=== PATIENT | male | born 1965 | race Caucasian/White ===

== ENCOUNTER 2018-02-17 08:40 | Emergency (ER) | payer MEDICARE, MEDICAID ==
[2018-02-17] MEDS ORDERED: CEFTRIAXONE SODIUM 1 GM in 0.9 % SODIUM CHLORIDE 100ML 100 ML IVPB ONE (09:01)
--- NOTE | 2018-02-17 09:04 | Emergency Department Record ---
History of Present Illness - General Chief complaint: Extremity Problem Stated complaint: HAND SWOLLEN Time Seen by Provider: 02/17/18 08:55 Source: Patient Mode of Arrival: Ambulatory Limitations: No limitations - History of Present Illness Initial comments: The patient is here due to L hand pain and swelling for 3 days. The onset has been gradual and he denies any trauma or injury. The patient states he had a similar issue with the R hand and it improved with antibiotics. MD Complaint: Extremity pain Onset/Timin -: Days(s) Location: Left, Hand Severity scale (1-10): 5 Quality: Aching Consistency: Constant Improves with: Immobilization Associated Symptoms: Denies other symptoms - Related Data Home Medications Medication Instructions Recorded Confirmed Last Taken Gabapentin [Neurontin] 800 mg PO Q4H 02/17/18 02/17/18 Unknown Levothyroxine Sodium [Synthroid] 112 mcg PO DAILYTHY 02/17/18 02/17/18 Unknown Oxycodone HCl 10 mg PO Q4H 02/17/18 02/17/18 Unknown Oxycodone HCl/Acetaminophen 1 tab PO Q6H PRN 02/17/18 02/17/18 Unknown [Percocet 10mg/325mg] Previous Rx's Medication Instructions Recorded Clindamycin HCl [Cleocin HCl] 300 mg PO QID #28 capsule 02/17/18 Allergies Allergy/AdvReac Type Severity Reaction Status Date / Time No Known Drug Allergies Allergy Verified 02/17/18 08:49 Travel Screening - Travel/Exposure Within Last 30 Days Have you traveled within the last 30 days?: No Review of Systems Constitutional: Denies: Chills, Fever Eyes: Denies: Eye discharge ENT: Denies: Congestion Respiratory: Denies: Cough, Dyspnea Past Medical History - SOCIAL HISTORY Smoking Status: Current every day smoker Alcohol Use: None Drug Use: None - RESPIRATORY Hx Respiratory Disorders: No - CARDIOVASCULAR Hx Cardio Disorders: Yes Hx Hypertension: Yes - NEURO Hx Neuro Disorders: No - GI Hx GI Disorders: No - Hx Genitourinary Disorders: No - ENDOCRINE Hx Endocrine Disorders: No Hx Thyroid Disease: Yes - MUSCULOSKELETAL Hx Musculoskeletal Disorders: Yes - PSYCH Hx Psych Problems: No - HEMATOLOGY/ONCOLOGY Hx Hematology/Oncology Disorders: No Family Medical History Any Significant Family History?: No Physical Exam - General General Appearance: Alert, Oriented x3, Cooperative, No acute distress - Head Head exam: Atraumatic, Normocephalic, Normal inspection - Eye Eye exam: Normal appearance, PERRL - Extremities Extremities exam: Tenderness (There is mild L hand swelling and tenderness with very slight warmth over the dorsal 3rd MCP area proximally. There is decreased ROM to the fingers with the 3rd finger the most painful. There are no signs of any flexor tenosynovitis at this time.), Other (The patient does have a ring on the 4th finger but is refusing to have it removed.). negative: Normal inspection, Full ROM Course Vital Signs 02/17/18 08:43 Temperature 98.9 F Pulse Rate 77 Respiratory 20 Rate Blood Pressure 146/86 Pulse Ox 97 - Reevaluation(s) Reevaluation #1: The patient is resting comfortably and denies any new pain or problems. I explained to him that I am concerned about a deep space hand infection and would like to refer him to a hand specialist in [place] that we work with here. The patient is refusing that plan and wants to just go home and see if the Abx' s clear up the problem like last time with the R hand. He also is refusing to allow me to removed the ring on the 4th finger and understands that if the finger swells more he could lose the finger. I also wanted to splint the L hand but he is refusing that also. He understands that by not following our instructions he could end up with a serious hand infection, need for surgery, chronic pain and unable to use the L hand properly. The patient understands and accepts the issues and also understands we cannot be held liable for an poor outcome. He states he may travel to [place] if the hand worsens. Presently the patient has proper decision making capacity and understands and accepts the issues. 02/17/18 10:15 Medical Decision Making - Data Complexity MDM Data: Labs Ordered and/or Reviewed, X-Ray Ordered and/or Reviewed - Lab Data Result diagrams: 02/17/18 09:43 02/17/18 09:43 - Radiology Data Radiology results: Report reviewed (L Hand: Arthritis with soft tissue swelling. ) Disposition Disposition: Discharge Clinical Impression: Infected hand Disposition: Against Medical Advice Condition: (2) Stable Instructions: Cellulitis (ED) Additional Instructions: Please continue to ice and elevate the hand and take the oral antibiotics as directed. Please proceed to the ER for any worsening pain, fever, redness,or swelling, If improved please see your family doctor tomorrow for recheck or return to the ER. Prescriptions: Clindamycin HCl [Cleocin HCl] 300 mg PO QID #28 capsule Forms: Patient Portal Access Time of Disposition: 10:24 Quality - Quality Measures Quality Measures: N/A - Blood Pressure Screening View Details: Yes Does Patient Have Any of the Following: No Blood Pressure Classification: Pre-Hypertensive BP Reading Systolic Measurement: 146 Diastolic Measurement: 86 Screening for High Blood Pressure: < Pre-Hypertensive BP, F/U Documented > [ [id number]] Pre-Hypertensive Follow-up Interventions: Referral to alternative/primary care provider.
[2018-02-17 09:42] LABS: BASO % 0.2 % (0-6); EOS % 3.4 % (0-6); GRAN % 59.5 % (47-80); HEMATOCRIT 37.3 % (42.0-52.0); HEMOGLOBIN 11.8 gm/dl (14.0-18.0); LYMPH % 29.6 % (16-45); MEAN CELL VOLUME 95.6 fl (81-97); MEAN CORPUSCULAR HGB CONC 31.6 g/dl (32-36); MEAN PLATELET VOLUME 8.8 fl (7.4-10.4); MONO % 7.3 % (0-9); PLATELET COUNT 254 K/uL (130-400); RED CELL DISTRIBUTION WIDTH 14.1 % (11.5-14.5); WHITE BLOOD COUNT W/O DIFF 9.6 K/uL (4.2-12.2)
[2018-02-17 09:44] LABS: MEAN CORPUSCULAR HEMOGLOBIN 30.2 pg (27-33)
[2018-02-17 09:54] LABS: BLOOD UREA NITROGEN 10 mg/dL (6-20)
[2018-02-17 09:55] LABS: CREATININE 0.7 mg/dL (0.7-1.2); EST GLOMERULAR FILTRATION RATE > 60 mL/min
[2018-02-17 09:57] LABS: GLUCOSE,RANDOM 109 mg/dL (74-109)
[2018-02-17 10:00] LABS: C-REACTIVE PROTEIN 3.77 mg/dL (<0.5)
[2018-02-17] MEDS ORDERED: CLINDAMYCIN 150 MG CAP PO ONE (10:14)
--- NOTE | 2018-02-18 08:39 | RADIOLOGY REPORT ---
EXAM: LEFT HAND HISTORY: UNEXPLAINED SWELLING THIRD FINGER. TECHNIQUE: Three views of the left hand were obtained. Comparison: None. FINDINGS: There appears to be soft tissue swelling involving several of the fingers although probably most marked involving the third finger. There is degenerative arthritis at several of the MCP joints and also mild degenerative arthritis at some of the IP joints as well as along the radial aspect of the wrist. Soft tissue swelling extends along the dorsum of the hand as well. No acute fracture, dislocation, or destructive lesion identified. IMPRESSION: 1. SOFT TISSUE SWELLING INVOLVING THE HAND EXTENDING INTO THE FINGERS. 2. DEGENERATIVE ARTHRITIS IN THE HAND AND WRIST. JOB NUMBER: [id number] MTDD
== END 2018-02-17 10:36 | disposition left against medical advice (07) ==
LOC: ER 08:40
DX: L03.114 Cellulitis of left upper limb (principal); L03.011 Cellulitis of right finger; I10 Essential (primary) hypertension; F17.210 Nicotine dependence, cigarettes, uncomplicated
CPT/HCPCS: 80048; 85025; 86140; 96365; 99284